=== PATIENT | female | born 1990 | race Two or more races ===

== ENCOUNTER 2024-03-22 08:51 | Outpatient (CLI) | payer OTHER | END 2024-03-22 09:01 | disposition home or self-care (01) | LOC: TOM 08:51 | DX: N70.91 Salpingitis, unspecified (principal) ==

== ENCOUNTER 2025-05-12 13:45 | Outpatient (CLI) | payer OTHER ==
[~2025-05-12] VITALS: Ht 160 cm; Wt 58.1 kg
[2025-05-12 13:12] VITALS: BP 101/66
[2025-05-12] MEDS ORDERED: PRENATA CHEWAB1 EACH PO (13:48)
[2025-05-12] MEDS ORDERED: CHILDREN'S ASPI81 MG PO (13:48)
[2025-05-12 15:15] VITALS: BP 97/61
[2025-05-12 19:36] VITALS: BP 99/59
[2025-05-12 23:09] VITALS: BP 91/51
[2025-05-13 02:37] VITALS: BP 90/53
[2025-05-13 06:13] VITALS: BP 94/53; O2SAT 99
[2025-05-13 09:07] VITALS: BP 94/53
== END 2025-05-13 09:07 | disposition home or self-care (01) ==
LOC: OBS/DEL 13:45
PROVIDERS: ATTEND Obstetrics & Gynecology
DX: O26.893 Other specified pregnancy related conditions, third trimester (principal); R10.20 Pelvic and perineal pain unspecified side